=== PATIENT | female | born 1940 | race Caucasian/White ===

== ENCOUNTER 2016-08-19 09:11 | Observation (INO) | payer OTHER ==
[~2016-08-19] VITALS: Ht 160 cm; Wt 85.1 kg
[~2016-08-19 09:11] MED LIST: ADULT LOW DOSE81 M1 PO; ADVAIR 250/501 DISK IH; ASCORBIC ACID500 M2 PO; ASPIR-TRIN325 M1 PO; AZO CRANBERRY1 EACH PO; Advair HFA 115/21 IH; Ambien PO; Ascorbic Acid,Ester- PO; BUSPAR15 MG PO; Baciguent Ophth Oint TP; DUONEB 2.5-0.5 M3 ML IH; DuoNeb IH; ESTER-C 1,0001 EACH PO; Ecotrin PO; FAMOTIDINE40 MG PO; FEOSOL325 MG PO; FOLIC ACID1 MG PO; Feosol PO; Folvite PO; GARLIQUE5000 MCG PO; HYDROCHLOROTHIA25 MG PO; HYDROCODON-ACE1 EAC7 PO; IMDUR60 MG PO; IRON325 M1 PO; Imdur PO; LEVOTHYROXINE100 MCG PO; LEVOTHYROXINE75 MCG PO; LISINOPRIL20 MG PO; LOPRESSOR25 MG PO; LOPRESSOR50 MG PO; Lasix PO; Levaquin PO; Levothroid,Synthroid PO; Lopressor PO; MAG-OXIDE400 MG PO; MAGNESIUM250 MG PO; MELATONIN10 M2 PO; Mag-Ox PO; Milk Of Magnesia,MOM PO; NITROGLYCERIN0.4 MG SL; PAROXETINE HCL10 MG PO; PEPCID40 MG PO; POTASSIUM-9999 MG PO; PRAVACHOL40 MG PO; PRINIVIL20 MG PO; PROTONIX40 MG PO; Paxil PO; Pepcid PO; SENOKOT,SENN1 TABLET PO; SPIRIVA RESPIMAT4 GM IH; SUPER B COMPLEX PO; SUPER B-50 COM1 EACH PO; TYLENOL PM1 CAPLET PO; VANCOMYCIN1.25 GM/25 IV; VITAMIN D400 UNI1 PO; VITAMIN E1000 UNI1 PO; Vicodin,Norco 5/325 PO; XANAX0.25 MG PO; Zestril,Prinivil PO
[2016-08-19 10:04] LABS: EOSINOPHIL (%) 1.6 % (0-5); EOSINOPHIL COUNT 0.2 K/uL (0-0.3); HEMATOCRIT 28.8 % (36.0-46.0); IMMATURE GRANULOCYTE (%) 0.8 % (0.0-0.7); IMMATURE GRANULOCYTE COUNT 0.1 K/uL; INSTRUMENT ABS NEUTROPHIL CT 8.2 K/uL; LYMPHOCYTE COUNT 1.4 K/uL (1.0-2.8); MCHC 31.3 G/DL (30.0-36.0); MCV 99.3 FL (83-99); MEAN PLAT.VOLUME 9.7 uM^3 (9.5-12.4); MONOCYTE (%) 8.2 % (3-12); MONOCYTE COUNT 0.9 K/uL (0-0.8); NEUTROPHIL (%) 76.3 % (45-76); NEUTROPHIL COUNT 8.2 K/uL (1.8-6.4); PLATELET COUNT 265 K/uL (156-360); RBC DIS.WIDTH-CV 14.4 % (11.8-14.6); RBC DIS.WIDTH-SD 51.9 % (39-53); WHITE BLOOD COUNT 10.8 K/uL (4.1-10.2)
[2016-08-19 10:14] LABS: CHLORIDE 107 mEq/L (99-109); POTASSIUM 4.5 mEq/L (3.7-5.4); SODIUM 140 mEq/L (136-147)
[2016-08-19 10:16] LABS: D-DIMER ELISA 0.36 mg/L FEU (< 0.57); PROTHROMBIN TIME 10.1 (9.2-11.2); PTT 24.7 (25-32)
[2016-08-19 10:17] LABS: GLUCOSE 117 mg/dL (70-99)
[2016-08-19 10:18] LABS: ANION GAP 9 MEQ/L (2-14)
[2016-08-19 10:19] LABS: TOTAL BILIRUBIN 0.3 mg/dL (0.0-1.0)
[2016-08-19 10:20] LABS: ALKALINE PHOSPHATASE 58 IU/L (3-129); GFR ESTIMATE (CALCULATED) 47 mL/min/
[2016-08-19 10:21] LABS: UREA NITROGEN (BUN) 24 mg/dL (9-23)
[2016-08-19 10:27] LABS: TROP-I INTERPRETATION NEGATIVE; TROPONIN-I 0.09 ng/mL (0.0-0.30)
[2016-08-19 13:43] LABS: TROP-I INTERPRETATION NEGATIVE
[2016-08-19] MEDS ORDERED: CO Q-10100 MG PO (14:34)
[2016-08-19] MEDS ORDERED: IRON325 M1 PO (14:37)
[2016-08-19 15:19] VITALS: BP 175/58
[2016-08-19 19:38] LABS: TROP-I INTERPRETATION NEGATIVE; TROPONIN-I 0.12 ng/mL (0.0-0.30)
[2016-08-19 20:41] VITALS: BP 142/76
[2016-08-19 23:54] VITALS: BP 140/68
[2016-08-20 01:09] LABS: TROP-I INTERPRETATION NEGATIVE; TROPONIN-I 0.09 ng/mL (0.0-0.30)
[2016-08-20 04:30] VITALS: BP 140/72
[2016-08-20 05:26] LABS: HEMATOCRIT 26.5 % (36.0-46.0); MCH 30.8 PG (29.0-34.0); MCHC 30.2 G/DL (30.0-36.0); MCV 101.9 FL (83-99); MEAN PLAT.VOLUME 10.8 uM^3 (9.5-12.4); PLATELET COUNT 266 K/uL (156-360); RBC DIS.WIDTH-CV 14.6 % (11.8-14.6); RBC DIS.WIDTH-SD 53.5 % (39-53); WHITE BLOOD COUNT 9.9 K/uL (4.1-10.2)
[2016-08-20 05:42] LABS: ANION GAP 13 MEQ/L (2-14); CHLORIDE 102 MEQ/L (99-109); GFR ESTIMATE (CALCULATED) 47 mL/min/; POTASSIUM 4.2 MEQ/L (3.7-5.4); SAMPLE HEMOLYSIS CHECK 0; SAMPLE ICTERIC CHECK 0; SAMPLE LIPEMIA CHECK 0; SODIUM 139 MEQ/L (136-147); UREA NITROGEN (BUN) 30 mg/dL (9-23)
[2016-08-20 05:43] LABS: GLUCOSE 69 mg/dL (70-99)
[2016-08-20 07:38] VITALS: BP 174/58
[2016-08-20] MEDS ORDERED: CARVEDILOL6.25 MG PO (10:40)
[2016-08-20] MEDS ORDERED: ATORVASTATIN CA40 MG PO (10:40)
[2016-08-20] MEDS ORDERED: LISINOPRIL5 MG PO (10:41)
[2016-08-20] MEDS ORDERED: LASIX20 MG PO (10:43)
== END 2016-08-20 11:37 | disposition home or self-care (01) ==
LOC: EME → EDBD 09:11 → EDOF 14:16 → 5WEST 14:16
PROVIDERS: Emergency Medicine; Hospitalist
DX: I11.0 Hypertensive heart disease with heart failure (principal); I50.33 Acute on chronic diastolic (congestive) heart failure; K29.70 Gastritis, unspecified, without bleeding; I25.10 Atherosclerotic heart disease of native coronary artery without angina pectoris; Z95.1 Presence of aortocoronary bypass graft; E78.5 Hyperlipidemia, unspecified; J44.9 Chronic obstructive pulmonary disease, unspecified; D64.9 Anemia, unspecified; E03.9 Hypothyroidism, unspecified; Z95.2 Presence of prosthetic heart valve; Z87.891 Personal history of nicotine dependence; E66.9 Obesity, unspecified
CPT/HCPCS: 71010; 80048; 80053; 83880; 84484; 85025; 85027; 85379; 85610; 85730; 93005; 99281; 99285; G0378; J1644; J1940

== ENCOUNTER → 2016-10-05 | Outpatient (CLI) | payer OTHER ==
[~2016-10-05] MED LIST changes: +ATORVASTATIN CA40 MG PO; +CARVEDILOL6.25 MG PO; +CO Q-10100 MG PO; +LASIX20 MG PO; +LISINOPRIL5 MG PO; +TUMERSAID TABL1 EACH PO; +[UNRECOGNIZED DRUG - OTHER]
[2016-10-05 10:12] LABS: BASOPHIL COUNT 0.1 K/uL (0-0.1); EOSINOPHIL (%) 1.6 % (0-5); EOSINOPHIL COUNT 0.1 K/uL (0-0.3); HEMATOCRIT 38.6 % (36.0-46.0); IMMATURE GRANULOCYTE (%) 0.3 % (0.0-0.7); INSTRUMENT ABS NEUTROPHIL CT 5.8 K/uL; LYMPHOCYTE COUNT 1.5 K/uL (1.0-2.8); MCH 28.9 PG (29.0-34.0); MCHC 30.3 G/DL (30.0-36.0); MEAN PLAT.VOLUME 10.8 uM^3 (9.5-12.4); MONOCYTE (%) 7.4 % (3-12); MONOCYTE COUNT 0.6 K/uL (0-0.8); NEUTROPHIL (%) 71.8 % (45-76); NEUTROPHIL COUNT 5.8 K/uL (1.8-6.4); PLATELET COUNT 234 K/uL (156-360); RBC DIS.WIDTH-CV 17.2 % (11.8-14.6); RBC DIS.WIDTH-SD 60.3 % (39-53)
[2016-10-05 10:18] LABS: MCV 95.3 FL (83-99); RED BLOOD COUNT 4.05 M/uL (3.80-5.20)
[2016-10-05 10:32] LABS: PTT 25.9 (25-32)
[2016-10-08 12:12] LABS: Flow Number of Markers 22 (()); Flow Spec Viability 94 % (()); Flow Specimen Type BONE MARROW (())
== END | disposition home or self-care (01) ==
LOC: OPR 09:15 → EDSTATUS 10:00 → OPR 10:00
PROVIDERS: Internal Medicine
DX: D50.9 Iron deficiency anemia, unspecified (principal)
CPT/HCPCS: 77012; 85025; 85610; 85730; 85999; 88184 90; 88185 90; 88189 90; 88271 90; 88275 90; 88291 90; J3010

== ENCOUNTER 2016-11-17 20:40 | Inpatient (IN) | payer OTHER ==
[~2016-11-17] VITALS: Ht 160 cm; Wt 80.9 kg
[2016-11-17 21:54] LABS: BASOPHIL COUNT 0.1 K/uL (0-0.1); EOSINOPHIL (%) 0.5 % (0-5); EOSINOPHIL COUNT 0.1 K/uL (0-0.3); HEMATOCRIT 34.2 % (36.0-46.0); IMMATURE GRANULOCYTE (%) 0.8 % (0.0-0.7); IMMATURE GRANULOCYTE COUNT 0.1 K/uL; INSTRUMENT ABS NEUTROPHIL CT 14.6 K/uL; LYMPHOCYTE COUNT 0.7 K/uL (1.0-2.8); MCH 29.6 PG (29.0-34.0); MCHC 31.9 G/DL (30.0-36.0); MCV 92.9 FL (83-99); MEAN PLAT.VOLUME 9.8 uM^3 (9.5-12.4); MONOCYTE (%) 5.3 % (3-12); MONOCYTE COUNT 0.9 K/uL (0-0.8); NEUTROPHIL (%) 88.8 % (45-76); NEUTROPHIL COUNT 14.6 K/uL (1.8-6.4); PLATELET COUNT 288 K/uL (156-360); RBC DIS.WIDTH-CV 17.3 % (11.8-14.6); RBC DIS.WIDTH-SD 57.1 % (39-53); RED BLOOD COUNT 3.68 M/uL (3.80-5.20); WHITE BLOOD COUNT 16.5 K/uL (4.1-10.2)
[2016-11-17 21:57] LABS: CHLORIDE 107 mEq/L (99-109); POTASSIUM 4.1 mEq/L (3.7-5.4); SODIUM 138 mEq/L (136-147)
[2016-11-17 22:00] LABS: GLUCOSE 134 mg/dL (70-99)
[2016-11-17 22:01] LABS: ANION GAP 11 MEQ/L (2-14)
[2016-11-17 22:02] LABS: TOTAL BILIRUBIN 0.9 mg/dL (0.0-1.0)
[2016-11-17 22:03] LABS: ALKALINE PHOSPHATASE 57 IU/L (3-129); GFR ESTIMATE (CALCULATED) 42 mL/min/
[2016-11-17 22:04] LABS: UREA NITROGEN (BUN) 33 mg/dL (9-23)
[2016-11-17 22:10] LABS: TROP-I INTERPRETATION NEGATIVE; TROPONIN-I 0.23 ng/mL (0.0-0.30)
[2016-11-18] VITALS (7 sets, daily range): BP systolic 122–144; BP diastolic 52–70
[2016-11-18] MEDS ORDERED: LISINOPRIL5 MG PO (00:40)
[2016-11-18] MEDS ORDERED: VITAMIN E400 UNIT PO (00:44)
[2016-11-18] MEDS ORDERED: IRON INFUSION IV (01:15)
[2016-11-18 02:18] LABS: ADD MIUA? YES; BILIRUBIN NEGATIVE; BLOOD NEGATIVE; COLOR YELLOW ((YELLOW)); GLUCOSE (STRIP) NEGATIVE; KETONES NEGATIVE; LEUKOCYTES SMALL; NITRITE NEGATIVE; PROTEIN (STRIP) 30; UROBILINOGEN 0.2 MG/DL (0.2-1.0)
[2016-11-18 02:23] LABS: BACTERIA RARE /HPF; EPITHELIAL CELLS RARE /HPF; MUCUS TRACE /LPF; RED BLOOD CELLS 0-5 /HPF (0-5); UCUL ADDED? NO
[2016-11-18 08:31] LABS: EOSINOPHIL (%) 0.9 % (0-5); EOSINOPHIL COUNT 0.1 K/uL (0-0.3); HEMATOCRIT 35.1 % (36.0-46.0); IMMATURE GRANULOCYTE (%) 0.8 % (0.0-0.7); IMMATURE GRANULOCYTE COUNT 0.1 K/uL; INSTRUMENT ABS NEUTROPHIL CT 9.1 K/uL; LYMPHOCYTE COUNT 1.6 K/uL (1.0-2.8); MCH 30.6 PG (29.0-34.0); MCHC 32.5 G/DL (30.0-36.0); MCV 94.1 FL (83-99); MEAN PLAT.VOLUME 10.1 uM^3 (9.5-12.4); MONOCYTE (%) 9.3 % (3-12); MONOCYTE COUNT 1.1 K/uL (0-0.8); NEUTROPHIL (%) 75.1 % (45-76); NEUTROPHIL COUNT 9.1 K/uL (1.8-6.4); PLATELET COUNT 298 K/uL (156-360); RBC DIS.WIDTH-CV 18.1 % (11.8-14.6); RBC DIS.WIDTH-SD 60.9 % (39-53); RED BLOOD COUNT 3.73 M/uL (3.80-5.20); WHITE BLOOD COUNT 12.1 K/uL (4.1-10.2)
[2016-11-18 08:54] LABS: TROP-I INTERPRETATION POSITIVE; TROPONIN-I 1.04 ng/mL (0.0-0.30)
[2016-11-18 09:46] LABS: PROTHROMBIN TIME 10.6 (9.2-11.2); PTT 29.2 (25-32)
[2016-11-18 17:04] LABS: TROP-I INTERPRETATION POSITIVE; TROPONIN-I 0.93 ng/mL (0.0-0.30)
[2016-11-19 03:15] VITALS: BP 138/68
[2016-11-19 08:11] VITALS: BP 136/62
[2016-11-19 09:29] LABS: INTERNAL CONTROL VALID? YES
[2016-11-19 11:16] VITALS: BP 138/50
[2016-11-19 15:02] VITALS: BP 126/52
[2016-11-19 20:30] VITALS: BP 142/58
[2016-11-20 00:20] VITALS: BP 158/76
[2016-11-20 04:20] VITALS: BP 138/60
[2016-11-20 07:50] VITALS: BP 150/58
== END 2016-11-20 12:28 | disposition home health service (06) | DRG 640 ==
LOC: EME → EDBD 20:40 → EDOF 11-18 01:03 → 4EAST 11-18 02:20 → 5WEST 11-18 02:22 → 4EAST 11-18 08:59 → 5WEST 11-18 08:59 → 4EAST 11-18 11:31
PROVIDERS: Emergency Medicine; Hospitalist; Nurse Practitioner Adult Health
DX: E87.71 Transfusion associated circulatory overload (principal); I50.33 Acute on chronic diastolic (congestive) heart failure; I13.0 Hypertensive heart and chronic kidney disease with heart failure and stage 1 through stage 4 chronic kidney disease, or unspecified chronic kidney disease; E03.9 Hypothyroidism, unspecified; E78.2 Mixed hyperlipidemia; I25.10 Atherosclerotic heart disease of native coronary artery without angina pectoris; D63.1 Anemia in chronic kidney disease; I73.9 Peripheral vascular disease, unspecified; N18.3 Chronic kidney disease, stage 3 (moderate); R09.02 Hypoxemia; J44.9 Chronic obstructive pulmonary disease, unspecified; E66.9 Obesity, unspecified; Z68.31 Body mass index [BMI] 31.0-31.9, adult; Z95.5 Presence of coronary angioplasty implant and graft; Z95.2 Presence of prosthetic heart valve; Z87.891 Personal history of nicotine dependence; Z79.01 Long term (current) use of anticoagulants
CPT/HCPCS: 36415; 36430; 71010; 71020; 74176; 78582; 80053; 81003; 83880; 84484; 85025; 85025 91; 85610; 85730; 86900; 86901; 86920; 86999; 87449; 93005; 94002; 99281; 99285; A9539; A9540; J0456; J0692; J1650; J1940; J7050; P9016

== ENCOUNTER 2017-11-17 13:36 | Inpatient (IN) | payer OTHER ==
[~2017-11-17] VITALS: Ht 160 cm; Wt 79.4 kg
[2017-11-17] VITALS (9 sets, daily range): BP systolic 146–164; BP diastolic 48–72
[~2017-11-17 13:36] MED LIST changes: +IRON INFUSION IV; -MELATONIN10 M2 PO; +MELATONIN3 MG PO; -VITAMIN D400 UNI1 PO; +VITAMIN D400 UNIT PO; +VITAMIN E400 UNIT PO
[2017-11-17 14:05] LABS: RETIC HGB EQUIVALENT 33.7 (28-36); RETICULOCYTE COUNT 7.1 % (0.5-1.8)
[2017-11-17 14:09] LABS: HEMATOCRIT 20.8 % (36.0-46.0); HEMOGLOBIN 6.6 G/DL (11.9-15.5); MCH 30.3 PG (29.0-34.0); MCHC 31.7 G/DL (30.0-36.0); MCV 95.4 FL (83-99); PLATELET COUNT 276 K/uL (156-360); RBC DIS.WIDTH-CV 15.9 % (11.8-14.6); RBC DIS.WIDTH-SD 55.8 % (39-53); RED BLOOD COUNT 2.18 M/uL (3.80-5.20); WHITE BLOOD COUNT 10.6 K/uL (4.1-10.2)
[2017-11-17 14:18] LABS: ALBUMIN 4.1 g/dL (3.2-4.8)
[2017-11-17 14:19] LABS: CHLORIDE 103 mEq/L (99-109); POTASSIUM 4.6 mEq/L (3.7-5.4); SODIUM 139 mEq/L (136-147)
[2017-11-17 14:21] LABS: GLUCOSE 106 mg/dL (70-99); TOTAL PROTEIN 6.5 g/dL (6.4-8.3)
[2017-11-17 14:23] LABS: TOTAL BILIRUBIN 0.3 mg/dL (0.0-1.0)
[2017-11-17 14:24] LABS: ALKALINE PHOSPHATASE 54 IU/L (3-129)
[2017-11-17 14:25] LABS: CREATININE 1.6 mg/dL (0.6-1.3); GFR ESTIMATE (CALCULATED) 33 mL/min/
[2017-11-17 14:26] LABS: AST (GOT) 17 IU/L (2-34); UREA NITROGEN (BUN) 45 mg/dL (9-23)
[2017-11-17 14:27] LABS: ALT (GPT) 13 IU/L (3-49)
[2017-11-17 14:28] LABS: TROP-I INTERPRETATION NEGATIVE
[2017-11-17] MEDS ORDERED: BUMETANIDE1 MG PO (16:43)
[2017-11-17] MEDS ORDERED: ALEVE220 MG PO (16:46)
[2017-11-17] MEDS ORDERED: OCEAN NASAL 0.645 ML BOTH NARES (16:47)
[2017-11-17] MEDS ORDERED: FERROUS FUMARAT63 MG PO (16:49)
[2017-11-17 18:35] LABS: HEMATOCRIT 23.5 % (36.0-46.0); HEMOGLOBIN 7.4 G/DL (11.9-15.5); MCH 29.8 PG (29.0-34.0); MCHC 31.5 G/DL (30.0-36.0); MCV 94.8 FL (83-99); PLATELET COUNT 249 K/uL (156-360); RBC DIS.WIDTH-CV 15.9 % (11.8-14.6); RBC DIS.WIDTH-SD 54.1 % (39-53); RED BLOOD COUNT 2.48 M/uL (3.80-5.20); WHITE BLOOD COUNT 11.1 K/uL (4.1-10.2)
[2017-11-17 19:10] LABS: TROP-I INTERPRETATION NEGATIVE; TROPONIN-I 0.11 ng/mL (0.0-0.30)
[2017-11-17 22:09] LABS: TROP-I INTERPRETATION NEGATIVE; TROPONIN-I 0.14 ng/mL (0.0-0.30)
[2017-11-18] VITALS (7 sets, daily range): BP systolic 160–180; BP diastolic 44–68
[2017-11-18 03:07] LABS: HEMATOCRIT 26.1 % (36.0-46.0); HEMOGLOBIN 8.5 G/DL (11.9-15.5); MCH 30.8 PG (29.0-34.0); MCHC 32.6 G/DL (30.0-36.0); MCV 94.6 FL (83-99); PLATELET COUNT 243 K/uL (156-360); RBC DIS.WIDTH-CV 15.9 % (11.8-14.6); RBC DIS.WIDTH-SD 54.3 % (39-53); RED BLOOD COUNT 2.76 M/uL (3.80-5.20); WHITE BLOOD COUNT 12.4 K/uL (4.1-10.2)
[2017-11-18 03:18] LABS: CHLORIDE 107 mEq/L (99-109); POTASSIUM 4.5 mEq/L (3.7-5.4); SODIUM 141 mEq/L (136-147)
[2017-11-18 03:20] LABS: GLUCOSE 92 mg/dL (70-99)
[2017-11-18 03:24] LABS: CREATININE 1.4 mg/dL (0.6-1.3); GFR ESTIMATE (CALCULATED) 39 mL/min/
[2017-11-18 03:25] LABS: UREA NITROGEN (BUN) 38 mg/dL (9-23)
[2017-11-18 03:29] LABS: TROP-I INTERPRETATION NEGATIVE; TROPONIN-I 0.11 ng/mL (0.0-0.30)
[2017-11-18 09:17] LABS: APPEARANCE CLEAR ((CLEAR)); BILIRUBIN NEGATIVE; BLOOD NEGATIVE; COLOR YELLOW ((YELLOW)); GLUCOSE (STRIP) NEGATIVE; KETONES NEGATIVE; LEUKOCYTES NEGATIVE; NITRITE NEGATIVE; PROTEIN (STRIP) NEGATIVE; UCUL ADDED? NO; UROBILINOGEN 0.2 MG/DL (0.2-1.0)
[2017-11-18 14:46] LABS: HEMATOCRIT 25.6 % (36.0-46.0); HEMOGLOBIN 8.1 G/DL (11.9-15.5); MCV 94.5 FL (83-99)
[2017-11-19] VITALS (10 sets, daily range): BP systolic 116–162; BP diastolic 46–74
[2017-11-19 06:21] LABS: HEMATOCRIT 23.8 % (36.0-46.0); HEMOGLOBIN 7.5 G/DL (11.9-15.5); MCH 30.2 PG (29.0-34.0); MCHC 31.5 G/DL (30.0-36.0); PLATELET COUNT 202 K/uL (156-360); RBC DIS.WIDTH-CV 15.6 % (11.8-14.6); RBC DIS.WIDTH-SD 54.5 % (39-53); RED BLOOD COUNT 2.48 M/uL (3.80-5.20); WHITE BLOOD COUNT 8.5 K/uL (4.1-10.2)
[2017-11-19 06:46] LABS: CHLORIDE 112 MEQ/L (99-109); CREATININE 1.3 MG/DL (0.6-1.3); GFR ESTIMATE (CALCULATED) 42 mL/min/; GLUCOSE 93 mg/dL (70-99); POTASSIUM 4.3 MEQ/L (3.7-5.4); SODIUM 143 MEQ/L (136-147); UREA NITROGEN (BUN) 26 mg/dL (9-23)
[2017-11-20 05:55] LABS: BASOPHIL (%) 0.5 % (0-1); BASOPHIL COUNT 0.1 K/uL (0-0.1); EOSINOPHIL (%) 2.4 % (0-5); EOSINOPHIL COUNT 0.3 K/uL (0-0.3); HEMATOCRIT 29.4 % (36.0-46.0); HEMOGLOBIN 9.3 G/DL (11.9-15.5); IMMATURE GRANULOCYTE (%) 0.7 % (0.0-0.7); LYMPHOCYTE (%) 14.1 % (15-42); LYMPHOCYTE COUNT 1.5 K/uL (1.0-2.8); MCH 29.7 PG (29.0-34.0); MCHC 31.6 G/DL (30.0-36.0); MCV 93.9 FL (83-99); MONOCYTE (%) 8.7 % (3-12); MONOCYTE COUNT 0.9 K/uL (0-0.8); NEUTROPHIL (%) 73.6 % (45-76); NEUTROPHIL COUNT 7.6 K/uL (1.8-6.4); PLATELET COUNT 227 K/uL (156-360); RBC DIS.WIDTH-CV 16.7 % (11.8-14.6); RBC DIS.WIDTH-SD 56.8 % (39-53); WHITE BLOOD COUNT 10.3 K/uL (4.1-10.2)
[2017-11-20 06:20] LABS: IRON 110 MCG/DL (35-150); TRANSFERRIN (TIBC) 226.3 mg/dL (215-380); TRANSFERRIN SATUR. 49 % (20-55)
[2017-11-20 06:26] LABS: RED BLOOD COUNT 3.13 M/uL (3.80-5.20)
[2017-11-20 06:34] LABS: LACTATE DEHYDROGENASE 292 IU/L (20-246)
[2017-11-20 07:51] LABS: FERRITIN 405 NG/ML (10-291)
[2017-11-20 08:38] VITALS: BP 176/66
[2017-11-20 14:10] VITALS: BP 148/54
[2017-11-21 00:37] VITALS: BP 180/50
[2017-11-21 05:00] VITALS: BP 158/55
[2017-11-21 06:07] LABS: BASOPHIL (%) 0.5 % (0-1); BASOPHIL COUNT 0.1 K/uL (0-0.1); EOSINOPHIL (%) 3.1 % (0-5); EOSINOPHIL COUNT 0.3 K/uL (0-0.3); HEMATOCRIT 28.6 % (36.0-46.0); HEMOGLOBIN 8.9 G/DL (11.9-15.5); IMMATURE GRANULOCYTE (%) 0.6 % (0.0-0.7); LYMPHOCYTE (%) 15.3 % (15-42); LYMPHOCYTE COUNT 1.6 K/uL (1.0-2.8); MCH 29.4 PG (29.0-34.0); MCHC 31.1 G/DL (30.0-36.0); MCV 94.4 FL (83-99); NEUTROPHIL (%) 70.5 % (45-76); NEUTROPHIL COUNT 7.2 K/uL (1.8-6.4); PLATELET COUNT 228 K/uL (156-360); RBC DIS.WIDTH-CV 16.6 % (11.8-14.6); RED BLOOD COUNT 3.03 M/uL (3.80-5.20); WHITE BLOOD COUNT 10.3 K/uL (4.1-10.2)
[2017-11-21 06:55] LABS: CHLORIDE 110 MEQ/L (99-109); CREATININE 1.5 MG/DL (0.6-1.3); GFR ESTIMATE (CALCULATED) 36 mL/min/; GLUCOSE 81 mg/dL (70-99); POTASSIUM 4.3 MEQ/L (3.7-5.4); SODIUM 144 MEQ/L (136-147); UREA NITROGEN (BUN) 30 mg/dL (9-23)
[2017-11-21 07:06] VITALS: BP 162/64
[2017-11-21] MEDS ORDERED: FERROUS SULFAT325 MG PO (09:26)
[2017-11-21] MEDS ORDERED: PROTONIX40 MG PO (09:31)
== END 2017-11-21 11:48 | disposition home or self-care (01) | DRG 812 ==
LOC: EME 13:36 → 5EAST 16:34 → EDOF 16:34 → ENRESERV 17:03 → 5EAST 18:12
PROVIDERS: Emergency Medicine Emergency Medical Services; Hospitalist; Internal Medicine; Physician Assistant; Student in an Organized Health Care Education/Training Program
DX: D46.4 Refractory anemia, unspecified (principal); D62 Acute posthemorrhagic anemia; D50.9 Iron deficiency anemia, unspecified; I13.0 Hypertensive heart and chronic kidney disease with heart failure and stage 1 through stage 4 chronic kidney disease, or unspecified chronic kidney disease; I50.32 Chronic diastolic (congestive) heart failure; N18.3 Chronic kidney disease, stage 3 (moderate); K44.9 Diaphragmatic hernia without obstruction or gangrene; K29.60 Other gastritis without bleeding; K57.30 Diverticulosis of large intestine without perforation or abscess without bleeding; K64.8 Other hemorrhoids; Z95.2 Presence of prosthetic heart valve; E78.5 Hyperlipidemia, unspecified; E03.9 Hypothyroidism, unspecified; I25.10 Atherosclerotic heart disease of native coronary artery without angina pectoris; E66.9 Obesity, unspecified; Z68.31 Body mass index [BMI] 31.0-31.9, adult; K55.20 Angiodysplasia of colon without hemorrhage; Z95.1 Presence of aortocoronary bypass graft; Z87.891 Personal history of nicotine dependence; Z79.82 Long term (current) use of aspirin; K62.5 Hemorrhage of anus and rectum
CPT/HCPCS: 36415; 71045; 74176; 80048; 80053; 81003; 82728; 82948; 83540; 83615; 83880; 84466; 84484; 85014; 85018; 85025; 85027; 85046; 86850; 86900; 86901; 86920; 88305; 88342 TC; 93005; 99281; 99285; J1756; J7030; J7050; P9016; P9040